=== PATIENT | female | born 1930 | race Native Hawaiian/Other Pacific Islander ===

== ENCOUNTER 2016-12-08 19:35 | Observation (INO) | payer MEDICARE, MEDICAID ==
[~2016-12-08] VITALS: Ht 149.9 cm; Wt 50.0 kg
[~2016-12-08 19:35] MED LIST: CHOL1CAP6 PO; DICL50 PO; FLUT50SP EACH NARE; FOSA70TA PO; GABA600T PO; METO25 PO; NITR0.4S SL; RANI150T PO; TRAZ100 PO
[2016-12-08 19:37] VITALS: BP 124/70; PULSE 60; RESP 20; TEMP 98.1; O2SAT 95
[2016-12-08 19:45] VITALS: BP 124/63; PULSE 60; RESP 22
--- NOTE | 2016-12-08 19:51 | PD ---
HPI Chief Complaint: Chest Pain Time Seen by Provider: 19:51 Travel History International Travel<30 days: No Contact w/Intl Traveler<30days: No Traveled to known affect area: No History of Present Illness HPI 86-year-old female brought to the emergency room by her son with history of chest pain bilaterally for past 2 days. Patient does not speak Tanzanian and her son is doing the translation. He pointed out the entire chest area above the costal margin where she is hurting. She describes the pain to be dull aching. There is no radiation to this pain. It has been continuous for past 2 days. She seems anxious and in moderate distress. Vital signs were stable. Patient has a pacemaker and her guest experience manager is Dr. Garcia. Patient or the son could not tell me if patient has a stent or history of coronary artery disease. He said he would call his sister to find out. Patient is currently in a bit was unable to rate her pain. PFSH Past Medical History Narrative Medical List of her past medical history is reviewed from the nursing note. Anemia: Yes Arthritis: Yes Asthma: No Autoimmune Disease: No Blood Disorders: No Anxiety: No Depression: Yes Heart Rhythm Problems: Yes Cancer: No Cardiac Catheterization: Yes Cardiovascular Problems: Yes High Cholesterol: Yes Chest Pain: Yes Congestive Heart Failure: No COPD: No Cerebrovascular Accident: No Coronary Artery Disease: Yes Diabetes: No Diminished Hearing: Yes Endocrine: No Gastrointestinal Disorders: No GERD: No Glaucoma: No Genitourinary: No Headaches: Yes Hiatal Hernia: No Hypertension: Yes Immune Disorder: No Implanted Vascular Access Dvce: Yes Kidney Stones: No Musculoskeletal: Yes Neurologic: Yes Psychiatric: No Reproductive: No Respiratory: Yes Migraines: No Myocardial Infarction: No Renal Failure: No Seizures: No Sickle Cell Disease: No Sleep Apnea: No Thyroid Disease: No Ulcer: No Menopausal: Yes Past Surgical History Abdominal Surgery: Yes AICD: No Appendectomy: Yes Arteriovenous Shunt: No Cardiac Surgery: Yes (PACEMAKER INSERTION) Coronary Artery Bypass Graft: No Ear Surgery: No Endocrine Surgery: No Eye Surgery: Yes Gynecologic Surgery: No Insulin Pump: No Joint Replacement: No Oral Surgery: No Pacemaker: Yes ([employer] pacer) Other Surgery: Yes (PACEMAKER IMPLANT) Social History Alcohol Use: No Tobacco Use: No Substance Use: No Allergies-Medications (Allergen,Severity, Reaction): Coded Allergies: Imdur (Verified Allergy, Severe, 12/08/16) Comments List of her allergies reviewed from the nursing note. Reported Meds & Prescriptions Reported Meds & Active Scripts Active Reported Alendronate (Alendronate Sodium) 70 Mg Tab 70 Mg PO Q7D Hydrocodone-Acetaminophen 5-325 mg Tab 1 Tab PO Q6H PRN Gabapentin 600 Mg Tab 600 Mg PO TID Narrative Medication List of her home medications are pending till the family brings the list. Son did not know the medications of the top of his head. Review of Systems Except as stated in HPI: all other systems reviewed are Neg Physical Exam Narrative GENERAL: Awake, alert, elderly, anxious, moderate distress SKIN: Warm and dry. HEAD: Atraumatic. Normocephalic. EYES: Pupils equal and round. No scleral icterus. No injection or drainage. ENT: No nasal bleeding or discharge. Mucous membranes pink and moist. NECK: Trachea midline. No JVD. CARDIOVASCULAR: Regular rate and rhythm. No murmur appreciated. RESPIRATORY: No accessory muscle use. Clear to auscultation. Breath sounds equal bilaterally. GASTROINTESTINAL: Abdomen soft, non-tender, nondistended. Hepatic and splenic margins not palpable. MUSCULOSKELETAL: No obvious deformities. No clubbing. No cyanosis. No edema. NEUROLOGICAL: Awake and alert. No obvious cranial nerve deficits. Motor grossly within normal limits. Normal speech. PSYCHIATRIC: Appropriate mood and affect; insight and judgment normal. Data Data Last Documented VS Vital Signs Date Time Temp Pulse Resp B/P Pulse Ox O2 Delivery O2 Flow Rate FiO2 12/08/16 19:50 28 97 Room Air 12/08/16 19:45 60 124/63 12/08/16 19:37 98.1 Orders Electrocardiogram (12/08/16 20:03) Basic Metabolic Panel (Bmp) (12/08/16 20:03) Ckmb (Isoenzyme) Profile (12/08/16 20:03) Complete Blood Count With Diff (12/08/16 20:03) Magnesium (Mg) (12/08/16 20:03) Prothrombin Time / Inr (Pt) (12/08/16 20:03) Act Partial Throm Time (Ptt) (12/08/16 20:03) Troponin I (12/08/16 20:03) Chest, Single Ap (12/08/16 20:03) Ecg Monitoring (12/08/16 20:03) Bilateral Bp Monitoring (12/08/16 20:03) Iv Access Insert/Monitor (12/08/16 20:03) Oximetry (12/08/16 20:03) Oxygen Administration (12/08/16 20:03) Aspirin Chew (Aspirin Chew) (12/08/16 20:15) Sodium Chloride 0.9% Flush (Ns Flush) (12/08/16 20:15) Alprazolam (Xanax) (12/08/16 20:15) Admit Order (Ed Use Only) (12/08/16 21:51) Place In Observation (12/08/16 21:51) Activity Bed Rest With Brp (12/08/16 21:51) Vital Signs (Adult) Q4H (12/08/16 21:51) Cardiac Rhythm .As Directed (12/08/16 21:51) ^ Notify Dr: Other .PRN (12/08/16 21:51) ^ Notify Dr. Parameters (12/08/16 21:51) Resp Oxygen Nasal Cannula (12/08/16 ) Diet Heart Healthy (12/09/16 Breakfast) Ckmb (Isoenzyme) Profile (12/08/16 21:51) Ckmb (Isoenzyme) Profile (12/09/16 00:51) Troponin I (12/08/16 21:51) Troponin I (12/09/16 00:51) Electrocardiogram (12/08/16 21:51) Electrocardiogram (12/09/16 00:51) ^ Obtain (12/08/16 21:51) Sodium Chloride 0.9% Flush (Ns Flush) (12/09/16 09:00) Acetaminophen (Tylenol) (12/08/16 22:00) Ondansetron Inj (Zofran Inj) (12/08/16 22:00) Negative Notcher / Telemetry ABIODUN.Q8H (12/08/16 21:51) Labs Laboratory Tests Test 12/08/16 20:10 White Blood Count 9.9 TH/MM3 Red Blood Count 3.51 MIL/MM3 Hemoglobin 11.2 GM/DL Hematocrit 33.5 % Mean Corpuscular Volume 95.6 FL Mean Corpuscular Hemoglobin 31.8 PG Mean Corpuscular Hemoglobin 33.3 % Concent Red Cell Distribution Width 15.4 % Platelet Count 181 TH/MM3 Mean Platelet Volume 11.2 FL Neutrophils (%) (Auto) 73.8 % Lymphocytes (%) (Auto) 16.2 % Monocytes (%) (Auto) 8.5 % Eosinophils (%) (Auto) 0.8 % Basophils (%) (Auto) 0.7 % Neutrophils # (Auto) 7.3 TH/MM3 Lymphocytes # (Auto) 1.6 TH/MM3 Monocytes # (Auto) 0.8 TH/MM3 Eosinophils # (Auto) 0.1 TH/MM3 Basophils # (Auto) 0.1 TH/MM3 CBC Comment DIFF FINAL Differential Comment Prothrombin Time 11.6 SEC Prothromb Time International 1.0 RATIO Ratio Activated Partial 25.4 SEC Thromboplast Time Sodium Level 137 MEQ/L Potassium Level 4.7 MEQ/L Chloride Level 107 MEQ/L Carbon Dioxide Level 22.3 MEQ/L Anion Gap 8 MEQ/L Blood Urea Nitrogen 24 MG/DL Creatinine 0.99 MG/DL Estimat Glomerular Filtration 53 ML/MIN Rate Random Glucose 95 MG/DL Calcium Level 8.8 MG/DL Magnesium Level 2.2 MG/DL Total Creatine Kinase 83 U/L Troponin I LESS THAN 0.02 NG/ML MDM Medical Decision Making Medical Screen Exam Complete: Yes Emergency Medical Condition: Yes Medical Record Reviewed: Yes Interpretation(s) Twelve-lead EKG was reviewed by me. Normal sinus rhythm, atrial paced, left axis deviation, old inferior WA, nonspecific ST-T wave changes. Heart rate of 60 bpm. Differential Diagnosis ACS, non-STEMI, nonspecific chest pain Narrative Course 8:45 PM looking into patient's past medical history that's available in our records and was noted that patient had a cardiac catheterization one year ago that showed moderate coronary artery disease. No stent was put in at that time. Given patient's age she does have coronary artery disease risk. If her blood test results come back negative I will admit her to the chest pain center to be ruled out. I have not discussed this with the patient on her son yet. Patient was given 2 baby aspirins and one Xanax for her noticeable anxiety. 9:48 PM blood test results of back and within acceptable limits. Patient will be admitted to the chest pain center. I let the son know about it and he interpreted this to the patient. Procedures EKG Prior to Arrival: Yes Diagnosis Primary Impression: Chest pain Qualified Code: R07.9 - Chest pain, unspecified type Admitting Information Admitting Physician Requests: Observation Scripts Ranitidine 150 Mg [id number] Mg PO BID #60 TAB Ref 0 Prov:Yazmin Kelley 12/09/16 Multiple Vitamins W/ Minerals (Centrum Silver Ultra Wome)1 Tab Tab1 Tab PO DAILY 30 Days Prov:Yazmin Kelley 12/09/16 Fluticasone Propionate (Nasal) (Allergy Nasal Linn 24 Ho)50 Mcg/Act Spr1 [place]inn NA BID 30 Days Ref 1 Prov:Yazmin Kelley 12/09/16 Ginkgo Biloba 60 Mg Tab60 Mg PO DAILY 30 Days Prov:Yazmin Kelley 12/09/16 Megestrol 40 Mg Tab5 Ml PO BID 30 Days Ref 1 Prov:Yazmin Kelley 12/09/[address] (Gentle Laxative For Women DR)5 Mg Tabdr5 Mg PO DAILY PRN ( CONSTIPATION) 30 Days Ref 1 Prov:Yazmin Kelley 12/09/16 Metoprolol Tartrate 100 Mg Pza448 Mg PO BID #60 TAB Ref 0 Prov:Yazmin Kelley 12/09/16 Cyclobenzaprine (Flexeril)10 Mg Tab10 Mg PO HS #90 TAB Ref 0 Prov:Yazmin Kelley 12/09/16 Diclofenac Potassium 50 Mg Tab50 Mg PO BID #90 TAB Ref 1 Prov:Yazmin Kelley 12/09/16 Cholecalciferol (Vitamin D)1,000 Unit Tab1,000 Units PO DAILY #1 BOTTLE Ref 0 Prov:Yazmin Kelley 12/09/16 Nitroglycerin SL (Nitrostat SL)0.4 Mg Subl0.4 Mg SL DIRECTED PRN (CHEST PAIN ) #100 TAB.SL Ref 0 1 tablet under the tongue as needed for chest pain. Repeat every 5 minutes for a total of 3 DOSES or call 911 if NO relief. Prov:Yazmin Kelley 12/09/16 Slick Thompson MD Dec 08, 2016 19:51
[2016-12-08] MEDS ORDERED: ALPRAZolam 0.25 MG TAB PO ONE (20:15)
[2016-12-08] MEDS ORDERED: SODIUM CHLORIDE 0.9% FLUSH 5 ML FLUSH IVF PRN ×2 (20:15→22:00)
[2016-12-08] MEDS ORDERED: ASPIRIN 81 MG CHEW TAB PO ONE (20:15)
[2016-12-08 20:38] LABS: AUTOMATED NEUTROPHIL # 7.3 TH/MM3 (1.8-7.7); BASOPHIL # 0.1 TH/MM3 (0-0.2); BASOPHIL % 0.7 % (0.0-2.0); EOSINOPHIL # 0.1 TH/MM3 (0-0.4); EOSINOPHIL % 0.8 % (0.0-4.0); HEMATOCRIT 33.5 % (35.0-46.0); HEMO FLAGS DIFF FINAL; LYMPH % 16.2 % (9.0-44.0); LYMPHOCYTE # 1.6 TH/MM3 (1.0-4.8); MEAN CELL VOLUME 95.6 FL (80.0-100.0); MEAN CORPUSCULAR HEMOGLOBIN 31.8 PG (27.0-34.0); MEAN CORPUSCULAR HGB CONC 33.3 % (32.0-36.0); MONO % 8.5 % (0.0-8.0); NEUT % 73.8 % (16.0-70.0); PLATELET COUNT 181 TH/MM3 (150-450); RED BLOOD COUNT 3.51 MIL/MM3 (4.00-5.30); RED CELL DISTRIBUTION WIDTH 15.4 % (11.6-17.2); WHITE BLOOD COUNT 9.9 TH/MM3 (4.0-11.0)
[2016-12-08 20:48] LABS: APTT (PATIENT) 25.4 SEC (24.3-30.1); PROTHROMBIN TIME - PATIENT 11.6 SEC (9.8-11.6)
--- NOTE | 2016-12-08 20:58 | RADRPT ---
EXAM DATE/TIME: 12/08/2016 20:25 [facility] COMPARISON: CHEST SINGLE AP, October 27, 2013, 22:13. INDICATIONS : Chest pain starting today MEDICAL HISTORY : None. SURGICAL HISTORY : Pacemaker. ENCOUNTER: Initial ACUITY: 1 day PAIN SCORE: 8/10 LOCATION: Bilateral chest FINDINGS: A single view of the chest demonstrates cardiomegaly. Minimal bibasilar subsegmental atelectasis. The cardiomediastinal contours are unremarkable. Osseous structures are intact. Prominent degenerative changes of both shoulders greater on the right. Left-sided pacemaker with 2 intact leads. CONCLUSION: Rdiomegaly with bibasilar subsegmental atelectasis. Gentry Gordon MD on December 08, 2016 at 20:55 Board Certified Radiologist. This report was verified electronically.
[2016-12-08 21:05] LABS: ANION GAP 8 MEQ/L (5-15); BICARBONATE 22.3 MEQ/L (21.0-32.0); BLOOD UREA NITROGEN 24 MG/DL (7-18); CHLORIDE 107 MEQ/L (98-107); GLOMERULAR FILTRATION RATE 53 ML/MIN (>89); MAGNESIUM 2.2 MG/DL (1.5-2.5); SODIUM (NA) 137 MEQ/L (136-145)
[2016-12-08 21:08] LABS: CREATINE KINASE 83 U/L (26-192); POTASSIUM 4.7 MEQ/L (3.5-5.1)
[2016-12-08] MEDS ORDERED: ACETAMINOPHEN 500 MG CPLT PO PRN (22:00)
[2016-12-08] MEDS ORDERED: ONDANSETRON HCL 4 MG/2 ML VIAL IV PRN (22:00)
[2016-12-08] MEDS ORDERED: GENT5TAB PO (23:39)
[2016-12-08] MEDS ORDERED: GINK60TA3 PO (23:39)
[2016-12-08] MEDS ORDERED: RANI150T PO (23:39)
[2016-12-08] MEDS ORDERED: DICL50TA PO (23:39)
[2016-12-08] MEDS ORDERED: NITR0.4S SL (23:39)
[2016-12-08] MEDS ORDERED: CYCL1TAB29 PO (23:39)
[2016-12-08] MEDS ORDERED: VITA100064 PO (23:39)
[2016-12-08] MEDS ORDERED: HYDR-3516 PO (23:39)
[2016-12-08] MEDS ORDERED: CENTTAB16 PO (23:39)
[2016-12-08] MEDS ORDERED: MEGE40TA PO (23:39)
[2016-12-08] MEDS ORDERED: ALEN1TAB48 PO (23:39)
[2016-12-08] MEDS ORDERED: METO100T PO (23:39)
[2016-12-08] MEDS ORDERED: FLUT1SPR22 (23:39)
[2016-12-08] MEDS ORDERED: GABA600T PO (23:39)
[2016-12-08 23:47] VITALS: BP 116/62
[2016-12-09] VITALS (7 sets, daily range): BP systolic 113–132; BP diastolic 59–70; PULSE 60–70; RESP 20; TEMP 96.1–98.6; O2SAT 96–98
[2016-12-09 00:32] LABS: CREATINE KINASE 65 U/L (26-192)
[2016-12-09 04:20] LABS: CREATINE KINASE 61 U/L (26-192)
[2016-12-09] MEDS ORDERED: ALPRAZolam 0.25 MG TAB PO ONE (08:30)
[2016-12-09] MEDS ORDERED: SODIUM CHLORIDE 0.9% FLUSH 5 ML FLUSH IVF SCH (09:00)
[2016-12-09] MEDS ORDERED: GABAPENTIN 300 MG CAP PO SCH (09:00)
[2016-12-09] MEDS ORDERED: PILL SPLITTER OTHER PRN (10:00)
[2016-12-09] MEDS ORDERED: FAMOTIDINE 20 MG TAB PO SCH (10:00)
[2016-12-09] MEDS ORDERED: MULTIVITAMIN HEMATINIC THERAPEUTIC TAB PO SCH (10:00)
[2016-12-09] MEDS ORDERED: KETOROLAC TROMETHAMINE 30 MG/ML (IVP) VIAL IV PUSH ONE (10:00)
[2016-12-09] MEDS ORDERED: METOPROLOL TARTRATE 100 MG TAB PO SCH (10:00)
--- NOTE | 2016-12-09 11:19 | MH ---
cc: CELESTINE ALMENDAREZ MD DATE OF ADMISSION: 12/08/2016 DATE OF : 1930 CHIEF COMPLAINT Chest pain HISTORY OF PRESENT ILLNESS This is a 86-year-old patient presents to the emergency room. With an onset of chest pain 2 days ago described as a stabbing constant pain that hurts in her substernal area in both the left and right side of her chest under her breasts. There is no radiation. Associated symptoms include, hurts to take a deep breath. No nausea, vomiting or shortness of breath. No known precipitating factors or relieving factors. The patient's son was at bedside is helping to translate. PAST MEDICAL HISTORY: 1. Past medical history includes anemia. 2. Osteoarthritis 3. Osteoporosis 4. Chronic pain 5. Hyperlipidemia 6. Insomnia. PAST SURGICAL HISTORY 1. She has a pacemaker 2. She has had an appendectomy. SOCIAL HISTORY She lives with her daughter and has and family support of two sons as well. She walks with a walker. She is a lifelong nonsmoker. Denies any alcohol or illegal drug use. Does not have diabetes. She was diagnosed with hyperlipidemia however son states she is not on any medication at this time and he is not sure the circumstances that she is not taking a medication anymore, and son does not know if she has ever had been diagnosed with hypertension. PAST CARDIAC TESTING: She is followed by Dr. Garcia every six months and she had a cardiac catheterization June 2015 and the conclusion of that exam was; 1. Minimal LAD disease, otherwise angiographically normal coronary arteries. 2. Right dominant system 3. Normal left ventricular function with an estimated ejection fraction of 65%. To her son's knowledge she has not had any recent cardiac testing. MEDICATIONS Current medications include 1. Gabapentin 600 mg t.i.d. 2. Megace 5 mg b.i.d. 3. Metoprolol Tartrate 100 mg b.i.d. 4. Flexeril 10 mg q.h.s. p.r.n. 5. Flonase 1 spray once daily. 6. Zantac 150 mg b.i.d. 7. Centrum 1 tablet daily. 8. Vitamin D 9. Gingko biloba 60 mg daily. 10. Hydrocodone /Acetaminophen 5/325 1 tablet q.6 h p.r.n. 11. Diclofenac 50 mg b.i.d. REVIEW OF SYSTEMS GENERAL: No recent illness, fevers, chills, fatigue or change in appetite. HEAD, EYES, EARS, NOSE, AND THROAT: No headache or visual changes or dysphagia. CARDIOVASCULAR SYSTEM: As stated above. No palpitations or dizziness. RESPIRATORY: Hurts to take a deep breath. There is no cough, wheeze and at this is or shortness of breath. ABDOMEN: No nausea, vomiting, bowel changes, diarrhea, constipation, blood in the stool or dark stool pain or distension. GENITOURINARY: No dysuria. EXTREMITIES: No lower leg edema. Reports left lower extremity pain greater than 1 month from knee to her feet she is unable to describe the pain just states it "hurts" MUSCULOSKELETAL: Complains of chest discomfort with breathing and palpitations. No decrease in range of motion. NEUROLOGIC: Walks with a walker. No motor or sensory deficits, change in memory. SKIN: No concerning lesions or rashes. PHYSICAL EXAMINATION VITAL SIGNS: Temperature 98.1, pulse 64, respiratory 28, blood pressure 132/64 and she is 96% on room air. GENERAL: She is alert, well-nourished, well-developed in no acute distress, mildly anxious pleasant female HEAD, EYES, EARS, NOSE, AND THROAT: Head: Normocephalic, atraumatic. Eyes: Sclerae are clear. Conjunctivae is without injection. NECK: Neck is supple. Trachea is midline. CARDIOVASCULAR SYSTEM: She has regular rate and rhythm. He has a systolic murmur grade 2/6. There is no rub or gallop. RESPIRATORY: Clear lungs throughout bilateral with no crackles, wheeze or rhonchi. She is nonlabored. Able to speak in full sentences. No use of accessory muscles. She you have use and she has a symmetrical chest rise. ABDOMEN: Abdomen is soft, nontender, nondistended. No masses. Positive bowel tones. EXTREMITIES: Pulses +1 x4. There is trace pitting edema bilateral lower extremities. MUSCULOSKELETAL: Was normal tone x4. She is tender diffusely in the anterior chest wall. Right and substernal area. There is no obvious deformities. NEUROLOGIC: CN II-XII grossly intact with a motor strength 5/5 gait is an with warm normal limits. She uses a walker. Psych he is alert and oriented x3. She has appropriate mood, insight and judgment. She has a pleasant affect, mildly anxious. SKIN: Normal turgor, normal texture. Warm and dry. There are no lesions or rashes. LABORATORY: The CBC has a hemoglobin of 11.2 hematocrit of 33.5 and MPV of 11.2 and neutrophil percentage of 73.8 otherwise unremarkable. Chemistry has a BUN of 24 estimated GFR 58. Three otherwise unremarkable. Three sets of cardiac enzymes are negative. Coagulation is negative. Chest x-ray Read by the radiologist has an impression of cardiomegaly with bibasilar subsegmental atelectasis. Three EKG's show a electronic atrial pacemaker. ASSESSMENT/PLAN 1. Chest pain. Patient has been admitted to the chest pain center. She was ruled out with three sets of EKG's and cardiac enzymes and was seen and evaluated by Dr. Celestine Almendarez. On reviewing the patient's chart and her recent cardiac catheterization with no disease. It has been recommended that the patient will follow with Dr. aGrcia and there is no further cardiac testing required at this time, however, we will order a D-dimer to rule out PE this has been discussed with both the patient and the patient's son at length and they are agreeable to this plan of care. If D-dimer and/or CT angiogram is negative she will be later discharged this afternoon and encouraged to follow up with her primary care provider. 2. Musculoskeletal pain. Toradol 15 mg x1 dose has been ordered. Dictated by AMARIS Sargent MD ANTONY Weinstein/stew /10:15 AM /11:18 AM
--- NOTE | 2016-12-09 15:43 | EKG ---
Date Performed: 12/09/2016 Time Performed: 03:02:46 PTAGE: 86 years EKG: Sinus rhythm NORMAL ECG PREVIOUS TRACING : 12/08/2016 23.42 Since previous tracing, no significant change noted DOCTOR: Indra Hamlin Interpretating Date/Time 12/09/2016 15:41:40
--- NOTE | 2016-12-09 15:44 | EKG ---
Date Performed: 12/08/2016 Time Performed: 23:42:26 PTAGE: 86 years EKG: Sinus rhythm NORMAL ECG PREVIOUS TRACING : 12/08/2016 19.59 Since previous tracing, no significant change noted DOCTOR: Indra Hamlin Interpretating Date/Time 12/09/2016 15:42:44
--- NOTE | 2016-12-09 15:45 | EKG ---
Date Performed: 12/08/2016 Time Performed: 19:59:13 PTAGE: 86 years EKG: ELECTRONIC ATRIAL PACEMAKER INFERIOR MYOCARDIAL INFARCTION ABNORMAL ECG PREVIOUS TRACING : 12/08/2016 19.58 Since previous tracing, no significant change noted DOCTOR: Indra Hamlin Interpretating Date/Time 12/09/2016 15:43:33
[2016-12-09] MEDS ORDERED: IOHEXOL 350 MG/ML 10 ML VIAL (for RAD DIAG) IV ONE (17:10)
--- NOTE | 2016-12-09 17:37 | RADRPT ---
EXAM DATE/TIME: 12/09/2016 17:00 [facility] COMPARISON: CT PULMONARY ANGIOGRAM, April 07, 2013, 14:51. INDICATIONS : Chest pain; evaluate for pulmonary embolism. IV CONTRAST: 50 cc Omnipaque 350 (iohexol) IV RADIATION DOSE: 9.34 CTDIvol (mGy) MEDICAL HISTORY : Cardiovascular disease. Hypertension. SURGICAL HISTORY : Pacemaker. Appendectomy. ENCOUNTER: Initial ACUITY: 1 day PAIN SCALE: 6/10 LOCATION: chest TECHNIQUE: Volumetric scanning of the chest was performed using a pulmonary embolism protocol MIP images were re constructed. Using automated exposure control and adjustment of the mA and/or kV according to patien t size, radiation dose was kept as low as reasonably achievable to obtain optimal diagnostic quality images. FINDINGS: PULMONARY ARTERIES: No filling defects are seen in the pulmonary arteries through the segmental level. LUNGS: There is no consolidation or pneumothorax . No concerning pulmonary nodule is visualized. PLEURAE: There is no pleural thickening or pleural effusion. MEDIASTINUM: Tortuosity of the thoracic aorta again noted. No significant interval change. MUSCULOSKELETAL: Severe glenohumeral joint arthrosis bilaterally. MISCELLANEOUS: Multiple bilateral renal masses likely representing cysts again seen. CONCLUSION: No evidence of pulmonary embolus. No acute findings identified in the chest. Chapin Leon MD on December 09, 2016 at 17:27 Board Certified Radiologist. This report was verified electronically.
[2016-12-09] MEDS ORDERED: VITA100064 PO (17:55)
[2016-12-09] MEDS ORDERED: CYCL1TAB29 PO (17:55)
[2016-12-09] MEDS ORDERED: NITR0.4S SL (17:55)
[2016-12-09] MEDS ORDERED: FLUT1SPR22 (17:55)
[2016-12-09] MEDS ORDERED: MEGE40TA PO (17:55)
[2016-12-09] MEDS ORDERED: RANI150T PO (17:55)
[2016-12-09] MEDS ORDERED: CENTTAB16 PO (17:55)
[2016-12-09] MEDS ORDERED: GINK60TA3 PO (17:55)
[2016-12-09] MEDS ORDERED: METO100T PO (17:55)
[2016-12-09] MEDS ORDERED: DICL50TA PO (17:55)
[2016-12-09] MEDS ORDERED: GENT5TAB PO (17:55)
--- NOTE | 2016-12-09 18:00 | HHI.DCPOC ---
Discharge Care Plan Diagnosis: (1) Musculoskeletal chest pain Goals to Promote Your Health * To prevent worsening of your condition and complications * To maintain your health at the optimal level Directions to Meet Your Goals Take your medications as prescribed Follow your dietary instruction Follow activity as directed Keep your appointments as scheduled Take your immunizations and boosters as scheduled If your symptoms worsen call your PCP, if no PCP go to Urgent Care Center or Emergency Room Smoking is Dangerous to Your Health. Avoid second hand smoke Call the 24-hour hour crisis hotline for domestic abuse at Yazmin Kelley Dec 09, 2016 18:00
== END 2016-12-09 18:52 | disposition home or self-care (01) ==
LOC: NEPC 19:35 → NEDA 21:53 → NEPHCDU 12-09 00:05
PROVIDERS: ADMIT Internal Medicine Cardiovascular Disease; ATTEND Internal Medicine Cardiovascular Disease
DX: R07.89 Other chest pain (principal); I25.10 Atherosclerotic heart disease of native coronary artery without angina pectoris; I10 Essential (primary) hypertension; E78.5 Hyperlipidemia, unspecified; E78.00 Pure hypercholesterolemia, unspecified; F41.9 Anxiety disorder, unspecified; D64.9 Anemia, unspecified; M19.90 Unspecified osteoarthritis, unspecified site; Z95.0 Presence of cardiac pacemaker
CPT/HCPCS: 71010; 71275; 80048; 82550; 83735; 84484; 85025; 85379; 85610; 85730; 93005; 99285; G0378; J1885; Q9967

== ENCOUNTER → 2017-11-28 | Outpatient (CLI) | payer MEDICARE, MEDICAID ==
[2017-11-28 11:22] LABS: ANION GAP 4 MEQ/L (5-15); BICARBONATE 30.6 MEQ/L (21.0-32.0); BLOOD UREA NITROGEN 50 MG/DL (7-18); CALCIUM 9.2 MG/DL (8.5-10.1); CHLORIDE 103 MEQ/L (98-107); CREATININE 1.38 MG/DL (0.50-1.00); GLOMERULAR FILTRATION RATE 36 ML/MIN (>89); GLUCOSE,FASTING 90 MG/DL (74-99); POTASSIUM 4.6 MEQ/L (3.5-5.1); SODIUM (NA) 138 MEQ/L (136-145)
== END ==
LOC: CLAB 10:33
DX: E78.5 Hyperlipidemia, unspecified (principal); I10 Essential (primary) hypertension
CPT/HCPCS: 36415; 80048

== ENCOUNTER → 2018-02-14 | Outpatient (CLI) | payer MEDICARE, MEDICAID ==
[~2018-02-14] MED LIST changes: +AMIT10TA6 PO; +ATOR40TA16 PO; -CHOL1CAP6 PO; +CHOL5000 PO; +COLA100C5 PO; -DICL50 PO; -FOSA70TA PO; +FURO20TA PO; +GENT5TAB PO; +GINK60TA10; +HYDR-3516 PO; -METO25 PO; +METO50TA PO; -NITR0.4S SL; +NYST1000 SWISH-SWAL; +POLY17PO3 PO; -RANI150T PO; -TRAZ100 PO
[2018-02-14 16:29] LABS: ALBUMIN 3.7 GM/DL (3.4-5.0); ALT (GPT) 20 U/L (10-53); AST (GOT) 21 U/L (15-37); BICARBONATE 27.5 MEQ/L (21.0-32.0); BLOOD UREA NITROGEN 34 MG/DL (7-18); CALCIUM 9.1 MG/DL (8.5-10.1); CHLORIDE 106 MEQ/L (98-107); CREATININE 1.05 MG/DL (0.50-1.00); GLOMERULAR FILTRATION RATE 50 ML/MIN (>89); GLUCOSE,FASTING 82 MG/DL (74-99); SODIUM (NA) 139 MEQ/L (136-145)
[2018-02-14 16:31] LABS: ALKALINE PHOSPHATASE 87 U/L (45-117); TOTAL BILIRUBIN ADULT 0.3 MG/DL (0.2-1.0); TOTAL PROTEIN 7.4 GM/DL (6.4-8.2)
== END ==
LOC: CLAB 15:33
PROVIDERS: ATTEND Nurse Practitioner Family
DX: R94.4 Abnormal results of kidney function studies (principal)
CPT/HCPCS: 36415; 80053